=== PATIENT | male | born 1935 | race Hispanic/Latino ===

== ENCOUNTER 2016-08-29 13:43 | Emergency (ER) | payer MEDICARE ==
[2016-08-29 14:42] LABS: BASO % 0.5 % (0.0-2.0); EOS # 0.1 K/uL (0.0-0.7); EOS % 1.6 % (0.0-4.0); HEMATOCRIT 42.6 % (35.0-51.0); LYMPH # 1.6 K/uL (1.0-4.3); LYMPH % 24.6 % (20.0-40.0); MEAN CELL VOLUME 71.6 fL (80.0-94.0); MEAN CORPUSCULAR HEMOGLOBIN 23.2 pg (27.0-31.0); MEAN CORPUSCULAR HGB CONC 32.4 g/dL (33.0-37.0); MEAN PLATELET VOLUME 7.9 fL (7.2-11.7); MONO # 0.6 K/uL (0.0-0.8); MONO % 8.8 % (0.0-10.0); NRBC % 0.1 % (0.0-2.0); RED CELL DISTRIBUTION WIDTH 16.2 % (11.5-14.5); WHITE BLOOD COUNT 6.4 K/uL (4.8-10.8)
[2016-08-29 14:50] LABS: CHLORIDE 102 mmol/L (98-107); POTASSIUM 4.2 mmol/L (3.6-5.2); SODIUM 140 mmol/L (132-148)
[2016-08-29 14:52] LABS: ALB/GLOB RATIO 1.3 (1.0-2.1); ALKALINE PHOSPHATASE 60 U/L (38-126); AST/SGOT 27 U/L (17-59); BILIRUBIN,TOTAL 0.8 mg/dL (0.2-1.3); CARBON DIOXIDE 27 mmol/L (22-30); GFR AFRICAN-AMERICAN > 60; TOTAL PROTEIN 6.9 g/dL (6.3-8.3)
[2016-08-29 14:53] LABS: ALT/SGPT 28 U/L (21-72); BLOOD UREA NITROGEN 17 mg/dL (9-20); CALCIUM 8.6 mg/dl (8.6-10.4); GLUCOSE,RANDOM 95 mg/dL (75-110)
--- NOTE | 2016-08-29 15:18 | C.PDOC ---
History Of Present Illness 81 y/o male is sent to the ED by Dr. Alatorre for evaluation of abdominal pain and gas. 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 Patient denies chest pain, vomiting, or other complaints. Chief Complaint (Nursing): Chest Pain History Per: Patient History/Exam Limitations: no limitations Onset/Duration Of Symptoms: Days (14), Intermittent Episodes, Persistent Current Symptoms Are (Timing): Still Present Recent travel outside of the [place]: No Past Medical History Reviewed: Historical Data, Nursing Documentation, Vital Signs Vital Signs: Last Vital Signs Temp 97.9 F 08/29/16 17:06 Pulse 74 08/29/16 17:06 Resp 17 08/29/16 17:06 BP 123/57 L 08/29/16 17:06 Pulse Ox 97 08/29/16 17:06 - Medical History PMH: Benign Prostatic Hyperplasia, HTN Surgical History: Back Surgery Family History: States: Unknown Family Hx - Social History Hx Tobacco Use: No Hx Alcohol Use: No Hx Substance Use: No - Immunization History Hx Tetanus Toxoid Vaccination: No Hx Influenza Vaccination: Yes Hx Pneumococcal Vaccination: No Review Of Systems Except As Marked, All Systems Reviewed And Found Negative. Cardiovascular: Negative for: Chest Pain Gastrointestinal: Positive for: Abdominal Pain, Other (gas). Negative for: Vomiting Physical Exam - Physical Exam Appears: Non-toxic, No Acute Distress Skin: Normal Color, Warm, Dry Head: Atraumatic, Normacephalic Neck: Normal ROM Chest: Symmetrical, No Tenderness Cardiovascular: Rhythm Regular Respiratory: Normal Breath Sounds, No Rales, No Rhonchi, No Wheezing Gastrointestinal/Abdominal: Normal Exam, Soft, No Tenderness, No Guarding, No Rebound Back: Normal Inspection, No CVA Tenderness Extremity: Normal ROM, No Swelling Neurological/Psych: Oriented x3, Normal Speech, Normal Cognition ED Course And Treatment - Laboratory Results Result Diagrams: 08/29/16 14:37 08/29/16 14:37 ECG: Interpreted By Me ECG Rhythm: Sinus Bradycardia Interpretation Of ECG: left axis deviation, bifascicular block Rate From EC (bpm) O2 Sat by Pulse Oximetry: 96 (ra) Pulse Ox Interpretation: Normal - CT Scan/US CTA Chest/Abdomen Other Rad Studies (CT/US): Read By Radiologist (DR. FeldmanIoana MD), Radiology Report Reviewed CT/US Interpretation: Findings: Visualized portions of the inferior thyroid gland appear unremarkable. The mediastinal and hilar vascular structures appear within normal limits. The heart appears within normal limits of size. Mild aneurysmal dilatation of the proximal descending aorta (series 3, image 36) measuring approximately 4 cm in transverse dimension. The remainder of the aorta appears unremarkable. No evidence of dissection. Emphysematous changes. Bibasilar atelectasis. No pleural effusion. No pneumothorax. No suspicious pulmonary nodules measuring greater than 5 mm. Small to moderate hiatal hernia/ distal esophageal wall thickening. Hypoattenuation of the liver compatible with hepatic steatosis. The spleen, kidneys, pancreas, adrenal glands, and gallbladder appear unremarkable. The stomach is nondistended. Lack of oral contrast limits evaluation for bowel pathology. The bowel loops appear within normal limits of caliber without evidence of intestinal obstruction. The appendix appears within normal limits of caliber. No secondary signs of acute appendicitis. There is no definite free air. Heterogeneous and severely enlarged prostate gland measures approximately 6.9 x 6.9 cm exerting mass effect on the urinary bladder. Partially imaged large right-sided hydrocele. Mild urinary bladder wall thickening along the posterior margin; correlate with urinalysis. The celiac artery origin is widely patent. The superior mesenteric artery origin is widely patent. The inferior mesenteric artery origin is patent. Renal arteries identified bilaterally, both widely patent. 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 Median sternotomy wires. Osseous demineralization. Mild kyphosis. Multilevel degenerative changes of the spine. L4-L5 posterior lumbar fusion. Vacuum disc phenomenon at L5-S1. Schmorl's node involving the superior endplate of L3. Impression: Mild aneurysmal dilatation of the proximal descending thoracic aorta measuring approximately 4 cm in transverse dimension. The remainder of the aorta appears unremarkable. No evidence of dissection. 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 Heterogeneous inferiorly enlarged prostate gland ; recommend correlation with PSA and RONAL. Partially imaged large right-sided hydrocele. Mild urinary bladder wall thickening along the posterior margin; correlate with urinalysis. Hepatic steatosis. Small to moderate hiatal hernia/distal esophageal wall thickening. Bibasilar atelectasis. Emphysematous changes. Additional incidental findings as above. Progress Note: Plan: CTA Chest/Abdomen, Blood Work, EKG. Medical Decision Making Medical Decision Making: Case discussed with Dr. Alatorre, patient cleared for discharge. At this time patient is asymptomatic in the ED, discharged home with instructions to follow up with Dr. Alatorre. Disposition - Disposition Referrals: Ger Alatorre MD [Staff Provider] - Disposition: HOME/ ROUTINE Disposition Time: 17:15 Condition: GOOD Additional Instructions: Thank you for letting us take care of you today. Your provider was Dr. Shannon. You were treated for evaluation of an aneurysm. The emergency medical care you received today was directed at your acute symptoms. If you were prescribed any medication, please fill it and take as directed. It may take several days for your symptoms to resolve. Return to the Emergency Department if your symptoms worsen, do not improve, or if you have any other problems. Please contact your doctor or call one of the physicians/clinics you have been referred to that are listed on the Patient Visit Information form that is included in your discharge packet. Bring any paperwork you were given at discharge with you along with any medications you are taking to your follow up visit. Our treatment cannot replace ongoing medical care by a primary care provider (PCP) outside of the emergency department. Thank you for allowing the [facility] team to be part of your care today. Follow up with Dr. Alatorre for outpatient care. Return to the emergency room if you have any concerns. Instructions: Thoracic Aortic Aneurysm (ED) - Clinical Impression Clinical Impression: Aneurysm of thoracic aorta - Scribe Statement The provider has reviewed the documentation as recorded by the Scribe (Dayana Adam) Provider Attestation: All medical record entries made by the Scribe were at my direction and personally dictated by me. I have reviewed the chart and agree that the record accurately reflects my personal performance of the history, physical exam, medical decision making, and the department course for this patient. I have also personally directed, reviewed, and agree with the discharge instructions and disposition.
[2016-08-29 15:47] VITALS: PULSE 74
--- NOTE | 2016-08-29 16:44 | CT ---
Angio chest, abdomen, and pelvis CT Indication: abdominal pain - h/o aneursym repair Technique: Contiguous axial images of the chest, abdomen, and pelvis. Coronal and Sagittal reformats generated and reviewed. This CT exam was performed using 1 or more of the following dose reduction techniques: Automated exposure control, adjustment of the MAA and/or kV according to patient size, and/or use of iterative reconstruction technique. Oral contrast was not administered. 100 cc Visipaque 320. Radiation dose: Total exam DLP = 1557.28 MGy-cm. Comparison: CT abdomen and pelvis without contrast performed 09/04/14 Findings: Visualized portions of the inferior thyroid gland appear unremarkable. The mediastinal and hilar vascular structures appear within normal limits. The heart appears within normal limits of size. Mild aneurysmal dilatation of the proximal descending aorta (series 3, image 36) measuring approximately 4 cm in transverse dimension. The remainder of the aorta appears unremarkable. No evidence of dissection. Emphysematous changes. Bibasilar atelectasis. No pleural effusion. No pneumothorax. No suspicious pulmonary nodules measuring greater than 5 mm. Small to moderate hiatal hernia/distal esophageal wall thickening. Hypoattenuation of the liver compatible with hepatic steatosis. The spleen, kidneys, pancreas, adrenal glands, and gallbladder appear unremarkable. The stomach is nondistended. Lack of oral contrast limits evaluation for bowel pathology. The bowel loops appear within normal limits of caliber without evidence of intestinal obstruction. The appendix appears within normal limits of caliber. No secondary signs of acute appendicitis. There is no definite free air. Heterogeneous and severely enlarged prostate gland measures approximately 6.9 x 6.9 cm exerting mass effect on the urinary bladder. Partially imaged large right-sided hydrocele. Mild urinary bladder wall thickening along the posterior margin; correlate with urinalysis. The celiac artery origin is widely patent. The superior mesenteric artery origin is widely patent. The inferior mesenteric artery origin is patent. Renal arteries identified bilaterally, both widely patent. 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 Median sternotomy wires. Osseous demineralization. Mild kyphosis. Multilevel degenerative changes of the spine. L4-L5 posterior lumbar fusion. Vacuum disc phenomenon at L5-S1. Schmorl's node involving the superior endplate of L3. Impression: Mild aneurysmal dilatation of the proximal descending thoracic aorta measuring approximately 4 cm in transverse dimension. The remainder of the aorta appears unremarkable. No evidence of dissection. 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 Heterogeneous inferiorly enlarged prostate gland ; recommend correlation with PSA and RONAL. Partially imaged large right-sided hydrocele. Mild urinary bladder wall thickening along the posterior margin; correlate with urinalysis. Hepatic steatosis. Small to moderate hiatal hernia/distal esophageal wall thickening. Bibasilar atelectasis. Emphysematous changes. Additional incidental findings as above.
[2016-08-29 17:08] VITALS: BP 123/57; RESP 17; TEMP 97.9
[2016-08-29 17:36] VITALS: O2SAT 96
--- NOTE | 2016-09-05 14:19 | CARD ---
APPROVED REPORT EKG Measurement Heart [id number] <Conclusion> Sinus bradycardia with sinus arrhythmia Left axis deviation Right bundle branch block Abnormal ECG
== END 2016-08-29 17:06 | disposition home or self-care (01) ==
LOC: C.ER 13:43
DX: I71.2 Thoracic aortic aneurysm, without rupture (principal); I10 Essential (primary) hypertension; N40.0 Benign prostatic hyperplasia without lower urinary tract symptoms
CPT/HCPCS: 71270; 74175; 80053; 84484; 85025; 99284; Q9967